=== PATIENT | female | born 2000 | race African-American/Black ===

== ENCOUNTER 2019-03-17 16:25 | Emergency (ER) | payer BC ==
[~2019-03-17] VITALS: Ht 157.5 cm; Wt 51.9 kg
[2019-03-17 16:31] VITALS: BP 119/74
--- NOTE | 2019-03-17 16:37 | NUR ---
PT AMBULATED TO LOBBY AT THIS TIME, VSS
--- NOTE | 2019-03-17 17:19 | NUR ---
PT AMBULATED TO BED 6 AT THIS TIME
[2019-03-17 17:32] LABS: BASOPHILS % (AUTO) 0.3 % (0.0-2.0); EOSINOPHILS % (AUTO) 0.3 % (0.0-4.0); HEMATOCRIT 35.3 % (36-48); HEMOGLOBIN 10.5 g/dL (12.0-16.0); LYMPHOCYTES # (AUTO) 2.7 K/uL (2.5-16.5); LYMPHOCYTES % (AUTO) 19.1 % (20.5-51.1); MEAN CORPUSCULAR HEMOGLOBIN 19 pg (27-31); MEAN CORPUSCULAR HGB CONC 30 g/dL (33-37); MEAN CORPUSCULAR VOLUME 63.9 fL (80-94); MONOCYTES # (AUTO) 1.3 K/uL (0.8-1.0); MONOCYTES % (AUTO) 9.4 % (1.7-9.3); NEUTROPHILS # (AUTO) 9.9 K/uL (1.8-7.7); NEUTROPHILS % (AUTO) 70.9 % (42.2-75.2); PLATELET COUNT (AUTO) 270 K/uL (140-450); RED BLOOD CELL COUNT(AUTO) 5.53 MIL/uL (4.20-5.40); RED CELL DISTRIBUTION WIDTH 31.6 % (11.6-13.7)
[2019-03-17 17:41] LABS: APPEARANCE,URINE CLEAR (CLEAR); BILIRUBIN,URINE 2+ (NEGATIVE); BLOOD, URINE NEGATIVE (NEGATIVE); COLOR,URINE YELLOW (YELLOW); LEUKOCYTE ESTERASE ,URINE NEGATIVE (NEGATIVE); NITRITE, URINE NEGATIVE (NEGATIVE); UGLUCOSE NEGATIVE (NEGATIVE)
[2019-03-17 17:52] LABS: ANION GAP 12.3 (8-16); CARBON DIOXIDE 24.2 mmol/L (21-32); CREATININE 0.7 mg/dL (0.6-1.3); POTASSIUM 3.5 mmol/L (3.5-5.1)
[2019-03-17 17:52] LABS: RBC,URINE 0-5 /HPF (0-5); WBC,URINE 0-5 /HPF (0-5)
[2019-03-17 17:58] LABS: ALBUMIN 3.4 g/dL (3.4-5.0); TOTAL BILIRUBIN 0.4 mg/dL (0.0-1.0)
[2019-03-17 18:56] VITALS: BP 114/58
== END 2019-03-17 18:56 | disposition home or self-care (01) ==
LOC: MED 16:25
DX: O26.891 Other specified pregnancy related conditions, first trimester (principal); R10.2 Pelvic and perineal pain; O99.011 Anemia complicating pregnancy, first trimester; Z3A.01 Less than 8 weeks gestation of pregnancy
CPT/HCPCS: 36415; 76817; 80053; 81001; 84702; 85025; 86900; 86901; 99284

== ENCOUNTER 2020-04-05 12:58 | Emergency (ER) | payer BC, MEDICAID ==
[~2020-04-05] VITALS: Ht 157.5 cm; Wt 52.2 kg
[2020-04-05 13:59] VITALS: BP 94/59
--- NOTE | 2020-04-05 14:03 | NUR ---
PT SENT TO ER LOBBY TO WAIT FOR AVAILABLE BED AND MSE.
--- NOTE | 2020-04-05 14:15 | NUR ---
Lab draw drawing lab in chair.
[2020-04-05 14:32] LABS: BASOPHILS % (AUTO) 0.4 % (0.0-2.0); EOSINOPHILS # (AUTO) 0.1 K/uL (0-0.4); EOSINOPHILS % (AUTO) 2.8 % (0.0-4.0); HEMATOCRIT 22.5 % (36-48); LYMPHOCYTES # (AUTO) 1.3 K/uL (2.5-16.5); LYMPHOCYTES % (AUTO) 24.3 % (20.5-51.1); MEAN CORPUSCULAR HEMOGLOBIN 16 pg (27-31); MEAN CORPUSCULAR HGB CONC 29 g/dL (33-37); MEAN CORPUSCULAR VOLUME 53.5 fL (80-94); MONOCYTES # (AUTO) 0.7 K/uL (0.8-1.0); MONOCYTES % (AUTO) 13.1 % (1.7-9.3); NEUTROPHILS # (AUTO) 3.1 K/uL (1.8-7.7); NEUTROPHILS % (AUTO) 59.4 % (42.2-75.2); PLATELET COUNT (AUTO) 333 K/uL (140-450); RED CELL DISTRIBUTION WIDTH 22.1 % (11.6-13.7); WHITE BLOOD COUNT (AUTO) 5.2 K/uL (4.5-11.0)
[2020-04-05 14:54] LABS: HEMOGLOBIN 6.5 g/dL (12.0-16.0)
[2020-04-05 14:57] LABS: ALBUMIN 3.4 g/dL (3.4-5.0); ANION GAP 14.8 (8-16); CARBON DIOXIDE 24.4 mmol/L (21-32); CREATININE 0.8 mg/dL (0.6-1.3); POTASSIUM 4.2 mmol/L (3.5-5.1); TOTAL BILIRUBIN 0.5 mg/dL (0.0-1.0)
[2020-04-05 15:00] LABS: PROTHROMBIN TIME 10.7 secs (10.8-13.4)
[2020-04-05] MEDS ORDERED: IBUPROFEN 800 MG TAB PO ONE (17:20)
[2020-04-05] MEDS ORDERED: IBUPROFEN 800 MG TAB ONE (18:55)
--- NOTE | 2020-04-05 18:55 | NUR ---
BLOOD TRANSFUSION STARTED, VITAL SIGNS STABLE, SITTING IN WHEEL CHAIR IN HALLWAY, AWAKE ALERT AND ORIENTED
--- NOTE | 2020-04-05 19:10 | NUR ---
PATIENT STARTED HAVING SOME SOB, STOPPED TRANSFUSSION AND NOTIFIED DR SHERMAN, DR SHERMAN STATED TO RESTART TRANSFUSION SHE DOES NOT APPEAR TO BE HAVING AN ALLERGIC REACTION.
--- NOTE | 2020-04-05 19:30 | NUR ---
19 y/o female presented to Ed c/o generalized weakness. Pt has hx of blood transfusion and heavy menstrual cycles. Pt c/o of dyspnea on exertions . Pt has occasional nausea but denies vomiting. Pt denies cough, fever, chills, pain. a/o x 4. rr even and unlabored. pmh: denies NKA
--- NOTE | 2020-04-05 22:00 | NUR ---
pt vss, no acute distress noted. RR even and unlabored.
--- NOTE | 2020-04-05 23:00 | NUR ---
Blood transfusion completed, no reaction noted. VSS. No acute distress.
--- NOTE | 2020-04-05 23:02 | NUR ---
pt states she is worried about being around someone who tested + for covid and would like to be swabbed.
--- NOTE | 2020-04-05 23:10 | NUR ---
IV removed, catheter intact and site benign. Applied folded 4x4 gauze and tape to stop bleeding.
--- NOTE | 2020-04-05 23:15 | NUR ---
pt refused covid novel swab at this time. Pt states she no longer wishes to be swabbed.
[2020-04-05 23:20] VITALS: BP 100/58
--- NOTE | 2020-04-05 23:20 | NUR ---
Patient discharged with v/s stable. Written and verbal after care instructions given and explained. Patient verbalized understanding. Ambulatory with steady gait. All questions addressed prior to discharge. Advised to follow up with PMD. Pt refuses to sign discharge paperwork at this time. Pt did take discharge papers and verbalized discharge instructions.
== END 2020-04-05 23:20 | disposition home or self-care (01) ==
LOC: MED 12:58
DX: D64.9 Anemia, unspecified (principal); R06.00 Dyspnea, unspecified; R55 Syncope and collapse; J45.909 Unspecified asthma, uncomplicated
CPT/HCPCS: 36415; 80053; 85025; 85610; 85730; 86886; 86900; 86901; 86920; 99283; P9016

== ENCOUNTER 2021-09-02 21:06 | Emergency (ER) | payer MEDICAID ==
[~2021-09-02] VITALS: Ht 157.5 cm; Wt 52.2 kg
[2021-09-02 21:13] VITALS: BP 96/62
[2021-09-02] MEDS ORDERED: CIPR500T4 PO (21:46)
[2021-09-02] MEDS ORDERED: IBUP-2213 PO (21:46)
--- NOTE | 2021-09-02 21:47 | NUR ---
PATIENT EVALED AND PENDING DC BY ER MD. PATIENT'S URINE POSITIVE FOR UTI.
[2021-09-02 22:50] VITALS: BP 122/82
--- NOTE | 2021-09-02 23:30 | NUR ---
PATIENT EVALEDA AND DISCHARGED BY ER MD. SENT HOME WITH ANTIBIOTICS. PATIENT VERBALIZED UNDERSTANDING. PATIENT AOX4 AND AMBULATORY WITH STEADY GAIT. BELONGINGS RECONCILED.
== END 2021-09-02 23:15 | disposition home or self-care (01) ==
LOC: MED 21:06
DX: N39.0 Urinary tract infection, site not specified (principal); R11.2 Nausea with vomiting, unspecified; D64.9 Anemia, unspecified
CPT/HCPCS: 81002; 81025; 99283